=== PATIENT | female | born 1980 | race American Indian/Alaskan Native ===

== ENCOUNTER 2016-07-15 09:51 | Outpatient (CLI) | payer BC ==
[2016-07-15 10:11] LABS: Hematocrit 39.7 % (30.3-42.9); Hemoglobin 13.1 gm/dl (10.1-14.3); Mean Corpuscular HGB Conc 33 % (30-34); Mean Corpuscular Hemoglobin 31 pg (28-32); Mean Corpuscular Volume 93 fl (79-97); Platelet Count 285 K/mm3 (140-440); Red Blood Count 4.25 M/mm3 (3.65-5.03); Red Cell Distribution Width 12.3 % (13.2-15.2); White Blood Count 7.2 K/mm3 (4.5-11.0)
[2016-07-15 10:30] LABS: Erythrocyte Sedimentation Rate 19 mm/Hr (0-20)
[2016-07-15 10:32] LABS: Alanine Aminotransferase 44 units/L (7-56); Albumin 3.8 g/dL (3.9-5); Albumin/Globulin Ratio 1.2 %; Alkaline Phosphatase 60 units/L (35-129); Anion Gap 13 mmol/L; Bilirubin,Total 0.6 mg/dL (0.1-1.2); Blood Urea Nitrogen 17 mg/dL (7-17); Calcium 9.2 mg/dL (8.4-10.2); Carbon Dioxide 27 mmol/L (22-30); Chloride 101.3 mmol/L (98-107); Glucose 85 mg/dL (65-100); Potassium 3.2 mmol/L (3.6-5.0); Sodium 138 mmol/L (137-145); Total Protein 7.1 g/dL (6.3-8.2)
[2016-07-15 10:48] LABS: Creatine Kinase 2750 units/L (30-135)
== END 2016-07-15 09:52 | disposition home or self-care (01) ==
LOC: LAB 09:51
PROVIDERS: ATTEND Specialist
DX: M33.20 Polymyositis, organ involvement unspecified (principal)
CPT/HCPCS: 36415; 80053; 82550; 85027; 85652

== ENCOUNTER 2016-09-17 16:14 | Outpatient (CLI) | payer BC ==
[2016-09-17 16:50] LABS: Anion Gap 18 mmol/L; BUN/Creatinine Ratio 31.66; Blood Urea Nitrogen 19 mg/dL (7-17); Calcium 9.3 mg/dL (8.4-10.2); Carbon Dioxide 23 mmol/L (22-30); Chloride 100.1 mmol/L (98-107); Glucose 84 mg/dL (65-100); Potassium 4.3 mmol/L (3.6-5.0); Sodium 137 mmol/L (137-145)
[2016-09-17 17:03] LABS: Creatine Kinase 2178 units/L (30-135)
== END 2016-09-17 16:15 | disposition home or self-care (01) ==
LOC: LAB 16:14
PROVIDERS: ATTEND Specialist
DX: M33.20 Polymyositis, organ involvement unspecified (principal)
CPT/HCPCS: 36415; 80048; 82550; 85652